=== PATIENT | female | born 1955 | race Caucasian/White ===

== ENCOUNTER 2016-06-13 06:43 | Emergency (ER) | payer SELFPAY ==
[2016-06-13 07:17] VITALS: TEMP 98.4; BMI 43.2
--- NOTE | 2016-06-13 07:38 | EDPRACDOC ---
- General Information Chief Complaint: Headache Stated Complaint: HYPERTENSION/ COUGH Time Seen by Provider: 06/13/16 07:19 Information Source: Patient Mode Of Arrival: Car Home Medications: Home Medications Meclizine HCl [Antivert] 12.5 - 25 mg PO Q6H PRN 03/05/14 Azithromycin 250 mg PO DAILY #4 tablet 06/13/16 Esomeprazole Magnesium [Nexium 24Hr] 20 mg PO DAILY PRN #30 tablet. 06/13/16 Levothyroxine [Synthroid, Levoxyl] 25 mcg PO DAILY #30 tablet 06/13/16 Lisinopril [Prinivil] 20 mg PO DAILY #30 tablet 06/13/16 Meclizine HCl [Antivert] 25 mg PO TID PRN #20 tab 06/13/16 Promethazine [Phenergan] 25 mg PO Q8H PRN #30 tab 06/13/16 Allergies/Adverse Reactions: Allergies Allergy/AdvReac Type Severity Reaction Status Date / Time No Known Allergies Allergy Verified 06/13/16 07:17 - History of Present Illness Symptoms Started: YEST HPI: PT PRESENTS WITH COUGH, FRONTAL HEADACHE RADIATING BACK, AND GENERALIZED FATIGUE. Symptoms: Reports: Cough, Headache. Denies: Nasal Symptoms, Sore Throat, Vomiting Recent Medications: Reports: None Shortness of Breath: Mild Cough Frequency: Intermittent Cough Description: Reports: Non-productive, Dry Rhinorrhea: Reports: None Ear Symptoms: Reports: None Associated Signs and Symptoms: Reports: Cough, Headache, Nasal Symptoms ( CONGESTION WITHOUT DISCHARGE.). Denies: Earache, Fever ED Past Medical History - History Reviewed Yes Nurses notes reviewed and agree except as marked - Patient Medical History Cardiac History: Reports: Hypertension Psychological History: Denies: Depression Systemic History: Reports: Hypothyroidism. Denies: Cancer Surgical History: Denies: Hysterectomy - Social Medical History Smoking Status: Never smoker Lives With: Family Lives In: Home EDM Review of Systems - Review of Systems ROS Negative Except as Marked: Yes All systems reviewed and were negative except as marked Constitutional: Fatigue, Weakness. negative: Fever Respiratory: Cough, Shortness of Breath Gastrointestinal: Pain (EPIGASTRIC TIGHTNESS YESTERDAY.) - Physical Exam Constitutional: Alert Oriented to: Time, Person, Place Last recorded Vital Signs: Last Vital Signs Temp 98.4 F 06/13/16 07:10 Pulse 98 06/13/16 07:10 Resp 18 06/13/16 07:10 BP 153/71 06/13/16 07:10 Pulse Ox 94 06/13/16 07:10 Oxygen Pulse Oxygen Saturation 94 O2 Device Oxygen Flow Rate Fraction of Inspired Oxygen ( FIO2) - HEENT Head: negative: Deformity, Laceration Eye Exam: negative: Conjunctival Injection, Pale Conjunctiva Oropharynx: negative: Membranes Dry, Red, Tonsillar Hypertrophy Nose: Tender (OVERLYING ETHMOID SINUS). negative: Congestion, Discharge Neck: negative: Limited ROM - Respiratory/Cardiovascular Respiratory: Normal - CTA. negative: Accessory Muscle Use, Diminished, Tachypnea Cardiovascular: negative: Bradycardia, Tachycardia, Irregular - GI Auscultation: Normal Palpation: Normal Tenderness: Non tender - Musculoskeletal Extremities: Radial Pulse (PALPABLE) - Integumentary Skin: Warm, Dry. negative: Rash - Neurologic Memory Impaired: Normal Motor Function: Normal Mood Description: Anxious, Appropriate Thought: Coherent Perception: Normal - Results 06/13/16 07:40 06/13/16 07:40 - EKG EKG #1 EKG Time: 07:37 -: Yes EKG interpreted by me Rate: bpm: 93 Rhythm: NSR Block: None ST: Nonsp Decision Time to Discharge: 09:14 - Departure Yes I personally saw and evaluated the patient. Disposition: Home Condition: Stable Final Diagnosis: Sinus headache Sinusitis Qualifiers: Sinusitis location: frontal Chronicity: acute Recurrence: non-recurrent Qualified Code(s): J01.10 - Acute frontal sinusitis, unspecified Instructions: Sinusitis (ED), Acute Headache (ED) Education/Counseling Given To: Patient Education/Counseling Given Regarding: Diagnosis, Treatment, Prognosis, Follow Up Referrals: Halle Turner MD [Primary Care Provider] - Call for Appointment Prescriptions: New Azithromycin 250 mg PO DAILY #4 tablet Meclizine HCl [Antivert] 25 mg PO TID PRN #20 tab PRN Reason: Dizziness Promethazine [Phenergan] 25 mg PO Q8H PRN #30 tab PRN Reason: Nausea/Vomiting Continue Meclizine HCl [Antivert] 12.5 - 25 mg PO Q6H PRN PRN Reason: Vertigo Esomeprazole Magnesium [Nexium 24Hr] 20 mg PO DAILY PRN #30 tablet. PRN Reason: Heartburn Or Indigestion Levothyroxine [Synthroid, Levoxyl] 25 mcg PO DAILY #30 tablet Lisinopril [Prinivil] 20 mg PO DAILY #30 tablet
[2016-06-13 07:47] LABS: AUTOMATED BASOPHIL 0.8 % (0-2); AUTOMATED EOSINOPHIL 1.3 % (0-5); AUTOMATED LYMPH 8.6 % (17-44); AUTOMATED MONOCYTE 6.3 % (3-10)
[2016-06-13 08:01] LABS: BLOOD UREA NITROGEN 11 MG/DL (7-17); CALCULATED OSMOLALITY 271 MOs/Kg (270-290); CHLORIDE 102 mEq/L (98-107); CPK TOTAL WITH POSSIBLE MB 176 IU/L (30-134); GLUCOSE 174 mg/dL (70-99); SODIUM LEVEL 139 mEq/L (137-146); TOTAL PROTEIN 8.3 G/DL (6.3-8.2)
[2016-06-13 08:06] LABS: PARTIAL THROMB. TIME 25.4 SEC (22-35)
[2016-06-13 08:16] LABS: CPKMB 1.7 ng/mL (0-4.5)
--- NOTE | 2016-06-13 08:40 | DIRPT ---
CLINICAL DATA: Cough. EXAM: CHEST 2 VIEW COMPARISON: 10/23/2011 . FINDINGS: Mediastinum and hilar structures are normal. Heart size stable. Low lung volumes with mild bibasilar atelectasis and/or infiltrates. No pleural effusion or pneumothorax. No acute bony abnormality. IMPRESSION: Low lung volumes with mild bibasilar atelectasis and/or infiltrates. Electronically Signed By: Andrey Sharif On: 06/13/2016 08:37
[2016-06-13] MEDS ORDERED: AZITHROMYCIN 250 MG TAB PO ONE (09:10)
[2016-06-13] MEDS ORDERED: PROMETHAZINE 25 MG/ML VIAL IV STA (09:13)
[2016-06-13] MEDS ORDERED: PROMETHAZINE 25 MG/ML VIAL IM STA (09:16)
[2016-06-13 09:52] VITALS: BP 176/81; PULSE 86
== END 2016-06-13 09:54 | disposition home or self-care (01) ==
LOC: ED 06:43
DX: J01.10 Acute frontal sinusitis, unspecified (principal)
CPT/HCPCS: 36415; 71020; 80053; 82550; 82553; 84484; 85025; 85610; 85730; 93005; 96372; 99283; J2550; J3490